=== PATIENT | male | born 1990 | race Caucasian/White ===

== ENCOUNTER 2020-08-27 17:16 | Emergency (ER) | payer SELFPAY ==
[~2020-08-27] VITALS: Ht 165.1 cm; Wt 104.3 kg
[2020-08-27] MEDS ORDERED: HYDROcodone-ACET 5/325MG TAB PO ONE (17:45)
[2020-08-27] MEDS ORDERED: ONDANSETRON ODT 4 MG TAB PO ONE (17:45)
[2020-08-27 18:10] LABS: Urine Bacteria FEW /hpf (None Seen); Urine Blood Negative /uL (Negative); Urine Mucus FEW (None Seen); Urine Specific Gravity 1.028 (1.001-1.035); Urine WBC <1 /hpf (0 - 3)
[2020-08-27 19:34] VITALS: BP 131/74
== END 2020-08-27 19:35 | disposition home or self-care (01) ==
LOC: ER 17:18
DX: S30.22XA Contusion of scrotum and testes, initial encounter (principal); Z20.822 Contact with and (suspected) exposure to COVID-19; X58.XXXA Exposure to other specified factors, initial encounter; Y93.89 Activity, other specified; Y92.89 Other specified places as the place of occurrence of the external cause; Y99.8 Other external cause status
CPT/HCPCS: 36415; 76870; 81001; 87426; 99284; Q0162